=== PATIENT | male | born 1995 | race Caucasian/White ===

== ENCOUNTER 2017-11-17 02:37 | Emergency (ER) | payer BC ==
[~2017-11-17] VITALS: Ht 175.3 cm; Wt 122.6 kg
[2017-11-17 02:46] VITALS: Ht 175.3 cm; Wt 122.6 kg
[2017-11-17 05:05] VITALS: BP 118/84
== END 2017-11-17 05:05 | disposition home or self-care (01) ==
LOC: ED 02:37
DX: K76.0 Fatty (change of) liver, not elsewhere classified (principal)
CPT/HCPCS: Q0092